=== PATIENT | male | born 1955 | race Caucasian/White ===

== ENCOUNTER 2020-06-09 06:25 | Day surgery (SDC) | payer MEDICARE ==
[~2020-06-09] VITALS: Ht 175.3 cm; Wt 86.2 kg
[~2020-06-09 06:25] MED LIST: ALLOPURINOL100 MG PO; ASPIR-LOW81 MG PO; CARBIDOPA-LEVO1 EAC4 PO; GABAPENTIN300 MG PO; HYDROCHLOROTHIA25 MG PO; LISINOPRIL40 MG PO; METFORMIN HCL500 MG PO; SIMVASTATIN40 MG PO; VENTOLIN HFA18 GM INH; VITAMIN D1000 UNI1 PO
--- NOTE | 2020-06-11 17:07 | OR ---
[facility] [address] [place], [place] [address] Signed DATE OF OPERATION: 06/09/2020 SURGEON: Rakan Cope MD PREOPERATIVE DIAGNOSES: 1. Personal history of multiple colonic polyps in 2018. 2. Internal hemorrhoids. POSTOPERATIVE DIAGNOSES: 1. A 4 mm polyp at 4 cm. 2. Multiple 3-4 mm polyps in mid to distal rectum. 3. Multiple 3-4 mm polyps at 20 cm/rectosigmoid junction. 4. A 4 mm polyp in proximal transverse colon. 5. Internal hemorrhoids. PROCEDURE: Colonoscopy with hot biopsy. ESTIMATED BLOOD LOSS: None. INDICATIONS: Jeff is a 65-year-old gentleman, asked to see me for a followup colonoscopy. Back in 2018, he had approximately 18 polyps removed. Many of those were sessile and some were adenomatous. Others were hyperplastic. He also had a negative colonoscopy back at age 49. Consequently, he returns now to address his personal history of colonic polyps. He has multiple medical issues, we have had an anesthesia help us in the past and that worked out quite well for him. He is also known to have some internal hemorrhoids and his prostate gland is a little indurated as well. There is no family history of colon cancer or polyps. In the meantime, he said he is having good bowel movements. In the office, I gave Jeff a pamphlet on colonoscopy. We reviewed the nature of the colonoscopy along with the risks including, but not limited to gas bloating, crampy abdominal pain, bleeding, perforation requiring surgery, and missed diagnosis. We also discussed the need for the monitored anesthesia care. He had expressed understanding and wished to proceed. PROCEDURE NOTE: Jeff was taken into our endoscopy suite and placed in the left lateral decubitus position. He was given monitored anesthesia care per our nurse replenishment buyer. A digital rectal exam was performed. Again, he has a slightly enlarged and moderately indurated Electronically Signed By: RAKAN COPE MD 06/11/20 1707 PATIENT NAME: JEFF ANN OPERATIVE REPORT DATE OF : 53 REPORT #: [id number] PHYSICIAN: RAKAN COPE MD PCP: [facility] PHILLIP MD REPORT IS CONFIDENTIAL AND NOT TO BE RELEASED WITHOUT AUTHORIZATION [facility] [address] [place], [place] [address] Signed prostate gland. No dominant nodules. The adult colonoscope was introduced and advanced all around into the cecum under direct visualization of camera without difficulty. It took just a little abdominal compression in order to advance the scope. His prep was good. We could easily see the appendiceal orifice and the ileocecal valve. The scope was slowly withdrawn. The above-mentioned polyps were easily removed with the help of hot biopsy forceps. He has a tremendous number of polyps from his distal sigmoid colon down to the anus. Many were biopsied, but many were simply cauterized with our hot biopsy forceps. Slowly but surely, he probably has most if not all the polyps removed from his rectum at this point. Certainly, anything of any size has been taken care of. Upon retroflexion of scope, he does have the minimal to moderate internal hemorrhoids. After this, the gas was suctioned out. The colonoscope removed. Jeff tolerated the procedure quite well. RECOMMENDATIONS: I will see Jeff back in my office in 7 to 14 days to review his results. He might consider one more short interval colonoscopy to make sure we caught up on all of his polyps. That would be anywhere from 12-24 months. Rakan Cope MD ALB/MODL /[id number] cc: MD Rakan Zepeda MD Copies: RAKAN COPE MD ~ Electronically Signed By: RAKAN COPE MD 06/11/20 1707 PATIENT NAME: JEFF ANN OPERATIVE REPORT DATE OF : 53 REPORT #: [id number] PHYSICIAN: RAKAN COPE MD PCP: [facility] PHILLIP MD REPORT IS CONFIDENTIAL AND NOT TO BE RELEASED WITHOUT AUTHORIZATION
--- NOTE | 2020-06-13 15:19 | PATH ---
[facility] [address] [facility] [place] [place] [address] Signed SPECIMEN(S): C PROXIMAL TRANSVERSE POLYP SPECIMEN(S): D COLON POLYP AT 20 CM SPECIMEN(S): E COLON POLYP AT 4 CM SPECIMEN(S): A RECTAL POLYP SPECIMEN(S): B COLON POLYP AT 18 CM SPECIMEN SOURCE: A. RECTAL POLYP B. COLON POLYP AT 18 CM C. PROXIMAL TRANSVERSE POLYP D. COLON POLYP AT 20 CM E. COLON POLYP AT 4 CM CLINICAL HISTORY: Colonoscopy. Preop: History of polyps. Postop: Colorectal polyps, internal hemorrhoids. MICROSCOPIC DESCRIPTION: Histologic sections of all submitted blocks are examined by light microscopy. These findings, together with the gross examination, support the pathologic diagnosis. FINAL PATHOLOGIC DIAGNOSIS: A. Polyp, rectum, biopsy: - Hyperplastic polyps (multiple): - There is no evidence of dysplasia or malignancy. B. Colon, polyp at 18 cm, biopsy: - Benign colonic mucosa with prominent intramucosal lymphoid aggregates. - No evidence of neoplasia. C. Colon, proximal transverse, biopsy: - No significant histopathology. - There is no evidence of neoplasia. D. Colon, polyp at 20 cm, biopsy: - One fragment demonstrates features of a hyperplastic polyp. - One other fragment has a benign intramucosal lymphoid nodule. - A third fragment demonstrates features suggestive of a submucosal leiomyoma. E. Colon, polyp at 4 cm, biopsy: - Benign colonic mucosa with prominent intramucosal lymphoid aggregate. - No evidence of neoplasia. COMMENT: The sections from specimen C are architecturally normal without crypt PATIENT NAME: KANDICE ANN PATHOLOGY DATE OF : 53 REPORT #: [id number] PHYSICIAN: RENATO DELGADILLO PCP: [facility] PHILLIP MD REPORT IS CONFIDENTIAL AND NOT TO BE RELEASED WITHOUT AUTHORIZATION [facility] [address] [place], [place] [address] Signed distortion. There is no acute or chronic inflammation. There are no abnormal infiltrates. There is no evidence of inflammatory, hyperplastic or adenomatous polyps. TWK:cml:sl:C2NR GROSS DESCRIPTION: Five specimens are received in five containers, labeled "ML." A. The specimen, labeled "ML," and designated on the requisition "rectum polypectomy," is received in formalin and consists of multiple fragments of pink-purdy tissue (1.0 x 0.6 x 0.3 cm in aggregate). The specimen is submitted entirely in cassette (A1). B. The specimen, labeled "ML," and designated on the requisition "colon polypectomy at 18 cm," is received in formalin and consists of three fragments of pink-purdy tissue (0.7 x 0.3 x 0.3 cm in aggregate). The specimen is submitted entirely in cassette (B1). C. The specimen, labeled "ML," and designated on the requisition "proximal transverse colon polypectomy," is received in formalin and consists of one fragment of pink-purdy tissue (0.2 x 0.2 x 0.2 cm). The specimen is submitted entirely in cassette (C1). D. The specimen, labeled "ML," and designated on the requisition "colon polypectomy at 20 cm," is received in formalin and consists of multiple fragments of pink-purdy tissue (0.9 x 0.6 x 0.3 cm in aggregate). The specimen is submitted entirely in cassette (D1). E. The specimen, labeled "ML," and designated on the requisition "colon polyp at 4 cm," is received in formalin and consists of one fragment of pink-purdy tissue (0.3 x 0.3 x 0.2 cm). The specimen is submitted entirely in cassette (E1). AC (under the direct supervision of a pathologist) The Gross Description was prepared using a voice recognition system. The report was reviewed for accuracy; however, sound-alike word errors, addition and/or deletions may occur. If there is any question about this report, please contact Client Services. PERFORMING LABORATORY: The technical component was performed by [facility] [address] (Master Technician: Tanvi Barraza MD; CLIA# [id number]). [facility], [address] [place] [id number] (CLIA# [id number]). Diagnostician: Shree Eden MD PATIENT NAME: KANDICE ANN PATHOLOGY DATE OF : 53 REPORT #: [id number] PHYSICIAN: RENATO PATHOLOGY PCP: [facility] PHILLIP MD REPORT IS CONFIDENTIAL AND NOT TO BE RELEASED WITHOUT AUTHORIZATION [facility] [address] [place], [place] [address] Signed Pathologist Electronically Signed 06/13/2020 Copies: ~ PATIENT NAME: MARISSAKANDICE RAY PATHOLOGY DATE OF : 53 REPORT #: [id number] PHYSICIAN: RENATO DELGADILLO PCP: [facility] PHILLIP MD REPORT IS CONFIDENTIAL AND NOT TO BE RELEASED WITHOUT AUTHORIZATION
== END 2020-06-09 08:55 | disposition home or self-care (01) ==
LOC: DS 06:25 → OPS 06:25 → DS 07:00 → OPS 07:00
PROVIDERS: Colon & Rectal Surgery
PROC: 0DBE8ZZ Excision of Large Intestine, Via Natural or Artificial Opening Endoscopic (ICD-10-PCS; 2020-06-09)
PROC: 0DBL8ZZ Excision of Transverse Colon, Via Natural or Artificial Opening Endoscopic (ICD-10-PCS; 2020-06-09)
PROC: 0DBP8ZZ Excision of Rectum, Via Natural or Artificial Opening Endoscopic (ICD-10-PCS; principal; 2020-06-09 07:00)
DX: K62.1 Rectal polyp (principal); K64.8 Other hemorrhoids; I10 Essential (primary) hypertension; J44.9 Chronic obstructive pulmonary disease, unspecified; E11.9 Type 2 diabetes mellitus without complications; Z86.010 Personal history of colon polyps; Z79.899 Other long term (current) drug therapy; Z79.82 Long term (current) use of aspirin; F17.210 Nicotine dependence, cigarettes, uncomplicated
CPT/HCPCS: J2704; J7121

== ENCOUNTER 2020-07-03 05:45 | Day surgery (SDC) | payer MEDICARE ==
[~2020-07-03] VITALS: Ht 175.3 cm; Wt 86.2 kg
[~2020-07-03 05:45] MED LIST changes: +FLOMAX0.4 MG PO
--- NOTE | 2020-07-03 05:55 | NUR ---
PT ARRIVED TO THE UNIT WALKING INDEPENDENTLY WITH NO COMPLICATIONS. PT INSTRUCTED TO CLEANSE WITH WIPES PROVIDED AND CHANGE INTO A GOWN.
--- NOTE | 2020-07-03 07:10 | NUR ---
ABX COMPLETE. LINE FLUSHED WITH 10ML NORMAL SALINE AND LACTATED RINGERS RESTARTED AT 75ML/HR. PT SLEEPING. BED LOWERED. CALL LIGHT WITHIN REACH.
--- NOTE | 2020-07-03 10:32 | NUR ---
07/03/20 1032 Stefany Alexis 1003 PT ARRIVED IN PACU NON RESPONSIVE TO NOXIOUS STIMULI. 1010 PT REACTIVE. NO C/O'S PAIN. 1015 ICE PLACED ON SCROTUM. 1020 OXYGEN SATS DROPPED TO 88% ON RA. ENCOURAGED COUGH, DEEP BREATHING. SATS INCREASED TO 89%. O2 @ 4L VIA NC PLACED. SATS 93%. 1030 TAKING SIPS OF WATER. NO C/O'S.
--- NOTE | 2020-07-03 11:01 | NUR ---
PT ARRIVED FROM PACU. REPORT RECIEVED FROM ADELIA Jones RN. BED LOCKED AND LOWERED BED RAILS UP, CALL LIGHT WITHIN REACH. WATER AND COFFEE PROVIDED. NO FURTHER REQUESTS AT THIS TIME.
--- NOTE | 2020-07-03 11:16 | NUR ---
PT USED CALL LIGHT TO REQUEST MORE COFFEE. COFFEE REFILLED AND PUDDING PROVIDED. NO FURTHER REQUESTS AT THIS TIME. BED LOWERED, BEDRAILS UP, CALL LIGHT WITHIN REACH.
--- NOTE | 2020-07-03 12:10 | NUR ---
PT UP TO THE BATHROOM. AMBULATED WELL INDEPENDENTLY. DRESSED INDEPENDENTLY AND EXPRESSED PAIN WITH MOVEMENT. PAIN MEDICATION GIVEN.
--- NOTE | 2020-07-03 12:15 | NUR ---
PT WHEELED OUT OF THE UNIT VIA HOSPITAL WHEELCHAIR BY KAT Branham RN. SPOUSE VINCENT PICKED UP PT VIA PERSONAL VEHICLE. PT TRANSFERRED FROM WHEELCHAIR TO CAR WITH NO COMPLICATIONS.
--- NOTE | 2020-07-05 15:12 | PATH ---
[facility] [address] [place], [place] [address] Signed SPECIMEN(S): A LEFT HYDROCELE SAC SPECIMEN SOURCE: A. LEFT HYDROCELE SAC CLINICAL HISTORY: Pre: Left scrotal mass. Post: Left hydrocele. FINAL PATHOLOGIC DIAGNOSIS: Hydrocele sac, left, excision: - Fragments of fibromembranous tissue, consistent with hydrocele sac. - Fragments of epididymis with no histopathologic abnormality. - Focal chronic inflammation foreign body type giant cells with cholesterol clefting. NAL:em:C2NR MICROSCOPIC EXAMINATION: Histologic sections of all submitted blocks are examined by light microscopy. These findings, together with the gross examination, support the pathologic diagnosis. GROSS DESCRIPTION: The specimen, labeled "ML," and designated on the requisition "left hydrocele sac," is received in formalin and consists of multiple pieces of pink-purdy hemorrhagic soft to membranous tissue (4.7 x 4.3 x 1.3 cm in aggregate). Surgical Services Assistant sections are submitted in cassette A1. AC (under the direct supervision of a pathologist) The Gross Description was prepared using a voice recognition system. The report was reviewed for accuracy; however, sound-alike word errors, addition and/or deletions may occur. If there is any question about this report, please contact Client Services. PERFORMING LABORATORY: The technical component was performed by [facility] [employer] [facility], [address] [place] [address] (Block Inspector: Tanvi Barraza MD; CLIA# [id number]). [facility], [address] [address] (CLIA# [id number]). Diagnostician: Ekaterina Fraga MD Pathologist PATIENT NAME: KANDICE ANN PATHOLOGY DATE OF : 53 REPORT #: [id number] PHYSICIAN: INC[facility]TE PATHOLOGY PCP: [facility] PHILLIP MD REPORT IS CONFIDENTIAL AND NOT TO BE RELEASED WITHOUT AUTHORIZATION [address] [place] [address] Signed Electronically Signed 07/04/2020 Copies: ~ PATIENT NAME: KANDICE ANN PATHOLOGY DATE OF : 53 REPORT #: [id number] PHYSICIAN: RENATO PATHOLOGY PCP: [facility]MM PHILLIP MD REPORT IS CONFIDENTIAL AND NOT TO BE RELEASED WITHOUT AUTHORIZATION
--- NOTE | 2020-07-06 09:24 | OR ---
[facility] [address] [place], [place] [address] Signed DATE OF OPERATION: 07/03/2020 SURGEON: Diego Encinas MD PREOPERATIVE DIAGNOSIS: Large left spermatocele. POSTOPERATIVE DIAGNOSIS: Large left hydrocele. PROCEDURES: 1. Left scrotal exploration. 2. Left hydrocelectomy. ANESTHESIA: General. ESTIMATED BLOOD LOSS: Minimal. COMPLICATIONS: None. SPECIMENS: Hydrocele sac sent to pathology for confirmation. DRAINS: None. INDICATIONS FOR PROCEDURE: Jeff is a very pleasant 65-year-old gentleman, who recently presented to my clinic with complaints of a progressively enlarging left hemiscrotum. He was last evaluated in [place] in 2015, at which time, he was noted to have hydroceles in both the left and right testicles. Since that time, his left hemiscrotum had grown progressively larger. He had undergone a testicular ultrasound in December of 2019, which revealed the presence of a 10 cm left spermatocele. After a discussion of the risks and benefits of the procedure, the patient elected to undergo scrotal exploration with excision of the left spermatocele, with possible epididymectomy. He presents today to undergo the aforementioned procedure. Electronically Signed By: DIEGO ENCINAS MD 07/06/20 0924 PATIENT NAME: JEFF ANN OPERATIVE REPORT DATE OF : 53 REPORT #: [id number] PHYSICIAN: DIEGO ENCINAS MD PCP: [facility]MM PHILLIP MD REPORT IS CONFIDENTIAL AND NOT TO BE RELEASED WITHOUT AUTHORIZATION [facility] [address] [place], [place] [address] Signed OPERATIVE FINDINGS: 1. Visual inspection of the external genitalia reveals an uncircumcised phallus with a glanular meatus. The testicles are descended bilaterally. There is a significant amount of swelling associated with the left hemiscrotum. The left hemiscrotum clearly transilluminates. 2. Exploration of the left hemiscrotum revealed a left hydrocele. The hydrocele was filled with approximately 250 mL of straw colored fluid. Once the hydrocele was drained, further inspection of the left epididymal head revealed a 1 cm epididymal head cyst. I chose to leave this alone as the complication would have been difficult due to its juxtaposition with the spermatic cord vessels. 3. The patient's left hydrocele was successfully corrected using the von Lauro's technique, in which the edges of the hydrocele sac are oversewn for hemostasis once the hydrocele sac is partially resected. DESCRIPTION OF PROCEDURE: After informed consent was obtained, the patient was taken back to the operating room. [facility], where general anesthesia was induced. He was placed in the supine position and his genitalia were prepped and draped in the sterile fashion. A marker was used to delineate the median raphe. The left hemiscrotum was then incised in a transverse orientation using a 15 blade. This 6 cm incision was then sharply incised to the level of the tunica vaginalis. The tunica vaginalis was then peeled away from the dartos fascia and I was able to deliver the left testicle. I continued blunt and sharp dissection using electrocautery to the point where I could clearly visualize the left hydrocele sac. The left hydrocele sac was incised after complete mobilization of the left hydrocele. The hydrocele sac was then partially resected using electrocautery. Care was taken not to injure any adjacent structures including the testicular vessels, epididymis, or ductus deferens. The edge of the hydrocele sac was then oversewn for hemostasis using 3-0 Vicryl suture in a continuous running fashion. Once I was satisfied that hemostasis had been achieved, I explored the left hemiscrotum to be sure there were not any bleeders associated with the dartos fascia. Once I was satisfied that hemostasis had been completely achieved, the left hemiscrotum was then irrigated again. The dartos fascia was then closed in a continuous running fashion using 3-0 Vicryl. The skin was then closed using interrupted vertical mattress sutures and 4-0 Vicryl. The newly closed incision was then cleaned and dried, and then bacitracin along with Xeroform dressing was then applied. This was followed by a bundle of dressing and scrotal support. The procedure was then terminated. The patient tolerated the procedure well and which went without any complication. He will now be transferred to the postanesthesia care unit in stable condition. DISPOSITION: The patient will be discharged to home later today once he awakes from general Electronically Signed By: DIEGO ENCINAS MD 07/06/20 0924 PATIENT NAME: JEFF ANN OPERATIVE REPORT DATE OF : 53 REPORT #: [id number] PHYSICIAN: DIEGO ENCINAS MD PCP: [facility]MM PHILLIP MD REPORT IS CONFIDENTIAL AND NOT TO BE RELEASED WITHOUT AUTHORIZATION [address] [address] Signed anesthetic. I discussed the details of today's procedure with the patient's life partner and answered all of her questions. I notified her that the patient did not have a spermatocele, and instead had a routine left hydrocele that was repaired without difficulty today. I informed his that he may not submerge the incision for at least another 48 hours, and that he needs to avoid any heavy physical activity for at least the next 3 weeks. He will be scheduled to return to clinic on July 17 for his first postoperative visit. He was sent home with Percocet 7.5/325 dispense #30 as needed for pain, along with Keflex 500 mg p.o. b.i.d. for a total of 7 days. Diego Encinas MD AR/SHARONL /[id number] Copies: ~ Electronically Signed By: DIEGO ENCINAS MD 07/06/20 0924 PATIENT NAME: JEFF ANN OPERATIVE REPORT DATE OF : 53 REPORT #: [id number] PHYSICIAN: DIEGO ENCINAS MD PCP: [facility]MM PHILLIP MD REPORT IS CONFIDENTIAL AND NOT TO BE RELEASED WITHOUT AUTHORIZATION
== END 2020-07-03 12:15 | disposition home or self-care (01) ==
LOC: DS 05:45 → OPS 05:45 → DS 06:45 → OPS 12:15
PROVIDERS: ATTEND Urology
PROC: 0VB70ZZ Excision of Left Tunica Vaginalis, Open Approach (ICD-10-PCS; principal; 2020-07-03 06:45)
DX: N43.3 Hydrocele, unspecified (principal); N43.41 Spermatocele of epididymis, single; I10 Essential (primary) hypertension; F17.210 Nicotine dependence, cigarettes, uncomplicated; Z79.899 Other long term (current) drug therapy
CPT/HCPCS: 00920; 88302; J0696; J1885; J2001; J2370; J2405; J2704; J3010; J7121